=== PATIENT | female | born 1970 | race African-American/Black ===

== ENCOUNTER 2016-12-03 18:22 | Emergency (ER) | payer OTHER ==
[~2016-12-03] VITALS: Ht 167.6 cm; Wt 80.0 kg
[2016-12-03] MEDS ORDERED: KETOROLAC TROMETHAMINE 60 MG/2 ML VIAL IM ONE (21:45)
[2016-12-03 22:18] LABS: BASOPHILS % (AUTO) 0.4 % (0.0-2.0); EOSINOPHILS % (AUTO) 7.1 % (1.0-6.0); HEMATOCRIT 38.4 % (36-46); HEMOGLOBIN 12.2 g/dL (12.0-16.0); LYMPHOCYTES # (AUTO) 3.2 K/uL (1.0-4.8); LYMPHOCYTES % (AUTO) 32.4 % (22.0-44.0); MEAN CORPUSCULAR HEMOGLOBIN 25.8 pg (26.0-34.0); MEAN CORPUSCULAR HGB CONC 31.9 G/dL (31.0-37.0); MEAN CORPUSCULAR VOLUME 81 fL (80-100); MONOCYTES # (AUTO) 0.6 K/uL (0.1-1.0); MONOCYTES % (AUTO) 5.9 % (2.0-9.0); NEUTROPHILS # (AUTO) 5.4 K/uL (1.8-7.7); NEUTROPHILS % (AUTO) 54.2 % (40.0-70.0); PLATELET COUNT (AUTO) 337 K/uL (150-450); RED BLOOD CELL COUNT(AUTO) 4.75 MIL/uL (4.00-5.20); RED CELL DISTRIBUTION WIDTH 15.1 % (11.5-14.5); WHITE BLOOD COUNT (AUTO) 9.9 K/uL (4.5-11.0)
[2016-12-03 22:25] LABS: ANION GAP 12 mmol/L (8-16); CALCIUM, TOTAL 8.3 mg/dL (8.8-10.5); CARBON DIOXIDE 22 mmol/L (22-29); CHLORIDE 104 mmol/L (98-107); CREATININE 0.64 mg/dL (0.60-1.30); GLOMERULAR FILTR. RATE CALC > 60 mL/min (>60); POTASSIUM 3.8 mmol/L (3.5-5.1); SODIUM SERUM 138 mmol/L (136-145); UREA NITROGEN, BLOOD 7 mg/dL (7-18)
[2016-12-03 22:30] LABS: ALANINE AMINOTRANSFERASE 14 U/L (12-78); ALBUMIN 3.3 g/dL (3.4-5.0); ASPARTATE AMINOTRANSFERASE 15 U/L (15-37); BILIRUBIN,TOTAL 0.2 mg/dL (0.1-1.0); TOTAL PROTEIN, SERUM 7.4 g/dL (6.4-8.2)
[2016-12-03 22:58] VITALS: BP 118/73
== END 2016-12-03 23:00 | disposition home or self-care (01) ==
LOC: EMS 18:23
DX: J02.8 Acute pharyngitis due to other specified organisms (principal); B97.89 Other viral agents as the cause of diseases classified elsewhere; R10.31 Right lower quadrant pain
CPT/HCPCS: 74176; 80053; 81025; 85025; 96372; 99285; J1885

== ENCOUNTER 2017-01-21 21:28 | Emergency (ER) | payer OTHER ==
[~2017-01-21] VITALS: Ht 167.6 cm; Wt 82.0 kg
[2017-01-21 23:28] VITALS: BP 127/66
== END 2017-01-21 23:37 | disposition home or self-care (01) ==
LOC: EMS 21:30
DX: J02.9 Acute pharyngitis, unspecified (principal)
CPT/HCPCS: 99282; 99283

== ENCOUNTER 2018-06-04 01:24 | Emergency (ER) | payer OTHER ==
[~2018-06-04] VITALS: Ht 167.6 cm; Wt 84.1 kg
[2018-06-04 02:30] VITALS: BP 118/61
[2018-06-04] MEDS ORDERED: PredniSONE 20 MG TABLET PO ONE (02:45)
== END 2018-06-04 02:47 | disposition home or self-care (01) ==
LOC: EMS 01:25
DX: L50.0 Allergic urticaria (principal); H61.21 Impacted cerumen, right ear
CPT/HCPCS: 99283; J7512

== ENCOUNTER 2018-11-10 20:41 | Emergency (ER) | payer OTHER ==
[~2018-11-10] VITALS: Ht 167.6 cm; Wt 81.8 kg
[2018-11-11] MEDS ORDERED: ALBUTEROL SULFATE HFA 90 MCG/PUFF 8 GM INHALER IH ONE (02:00)
[2018-11-11] MEDS ORDERED: AZITHROMYCIN 250 MG TABLET PO ONE (02:00)
[2018-11-11 02:29] VITALS: BP 111/70
== END 2018-11-11 02:33 | disposition home or self-care (01) ==
LOC: EMS 20:42
DX: J18.9 Pneumonia, unspecified organism (principal)
CPT/HCPCS: J3535

== ENCOUNTER 2019-01-17 16:19 | Emergency (ER) | payer OTHER ==
[~2019-01-17] VITALS: Ht 162.6 cm; Wt 81.8 kg
[2019-01-17 17:46] VITALS: BP 104/68
== END 2019-01-17 19:22 | disposition home or self-care (01) ==
LOC: EMS 16:20
DX: M25.571 Pain in right ankle and joints of right foot (principal); M79.671 Pain in right foot

== ENCOUNTER 2019-05-08 16:45 | Emergency (ER) | payer OTHER ==
[~2019-05-08] VITALS: Ht 167.6 cm; Wt 86.4 kg
[2019-05-08] MEDS ORDERED: PredniSONE 20 MG TABLET PO ONE (18:00)
[2019-05-08] MEDS ORDERED: ALBUTEROL SULFATE HFA 90 MCG/PUFF 8 GM INHALER IH ONE (18:00)
[2019-05-08] MEDS ORDERED: DiphenhydrAMINE HCL 50 MG CAPSULE PO ONE (18:00)
[2019-05-08 19:37] VITALS: BP 102/65
== END 2019-05-08 19:32 | disposition home or self-care (01) ==
LOC: EMS 16:45
DX: T78.40XA Allergy, unspecified, initial encounter (principal); J18.9 Pneumonia, unspecified organism; Y92.89 Other specified places as the place of occurrence of the external cause
CPT/HCPCS: 71046; 94640; 99283; J7512; J3535

== ENCOUNTER 2020-04-03 21:58 | Emergency (ER) | payer OTHER ==
[~2020-04-03] VITALS: Ht 167.6 cm; Wt 81.8 kg
[2020-04-03 23:25] LABS: APPEARANCE,URINE CLEAR (CLEAR)
[2020-04-03 23:26] LABS: BILIRUBIN,URINE NEGATIVE (NEGATIVE); GLUCOSE, URINE (UA) NEGATIVE (NEGATIVE); KETONES,URINE NEGATIVE (NEGATIVE); LEUKOCYTE ESTERASE ,URINE SMALL (NEGATIVE); NITRATE,URINE NEGATIVE (NEGATIVE); OCCULT BLOOD,URINE NEGATIVE (NEGATIVE); PROTEIN,URINE NEGATIVE (NEGATIVE); UROBILINOGEN,URINE 0.2 mg/dL (<=1.0)
[2020-04-03 23:44] LABS: BACTERIA,URINE Rare /HPF (None Seen); RBC,URINE None Seen /HPF (0-2); SQUAMOUS EPITHELIAL CELL,UR Few /LPF (None Seen); WBC,URINE 0-2 /HPF (0-5)
[2020-04-04 00:20] VITALS: BP 119/65
[2020-04-04] MEDS ORDERED: IBUPROFEN 400 MG TABLET PO ONE (00:45)
[2020-04-04] MEDS ORDERED: LIDOCAINE 5% TRANSDERMAL PATCH TD ONE (00:45)
== END 2020-04-04 00:59 | disposition home or self-care (01) ==
LOC: EMS 21:58
DX: M54.6 Pain in thoracic spine (principal)

== ENCOUNTER 2023-08-09 17:44 | Emergency (ER) | payer MEDICAID, OTHER ==
[~2023-08-09] VITALS: Ht 167.6 cm; Wt 84.1 kg
[2023-08-09 17:52] VITALS: TEMP 97.9
[2023-08-09] MEDS ORDERED: DIPH50CA37 PO (19:38)
[2023-08-09] MEDS ORDERED: NAPH15DR75 OU (19:38)
[2023-08-09] MEDS ORDERED: HYDR30CR44 TP (19:38)
[2023-08-09] MEDS ORDERED: DiphenhydrAMINE HCL 25 MG CAPSULE PO ONE (19:45)
[2023-08-09] MEDS ORDERED: PredniSONE 20 MG TABLET PO ONE (19:45)
[2023-08-09] MEDS ORDERED: ACETAMINOPHEN 500 MG TABLET PO ONE (19:45)
[2023-08-09 20:02] VITALS: BP 122/68; PULSE 72; RESP 18
== END 2023-08-09 20:04 | disposition home or self-care (01) ==
LOC: EMS 17:45
DX: H10.13 Acute atopic conjunctivitis, bilateral (principal); Z98.890 Other specified postprocedural states
CPT/HCPCS: 99284; J7512

== ENCOUNTER 2023-09-12 03:21 | Emergency (ER) | payer MEDICAID, OTHER ==
[~2023-09-12] VITALS: Ht 167.6 cm; Wt 77.0 kg
[~2023-09-12 03:21] MED LIST: DIPH50CA37 PO; HYDR30CR44 TP; NAPH15DR75 OU
[2023-09-12 03:44] VITALS: TEMP 98
[2023-09-12] MEDS ORDERED: TraMADol HCL 50 MG TABLET PO ONE (04:30)
[2023-09-12] MEDS ORDERED: TRAM-559 PO (05:44)
[2023-09-12 06:00] VITALS: BP 124/77; PULSE 80; RESP 18
== END 2023-09-12 07:06 | disposition home or self-care (01) ==
LOC: EMS 03:25
DX: M65.4 Radial styloid tenosynovitis [de Quervain] (principal); Z98.890 Other specified postprocedural states
CPT/HCPCS: 99283

== ENCOUNTER 2024-01-28 00:39 | Emergency (ER) | payer OTHER ==
[~2024-01-28] VITALS: Ht 162.6 cm; Wt 81.8 kg
[~2024-01-28 00:39] MED LIST changes: +TRAM50TA5 PO
[2024-01-28 01:24] LABS: BASOPHILS % (AUTO) 0.6 % (0.0-2.0); EOSINOPHILS % (AUTO) 7.6 % (1.0-6.0); HEMATOCRIT 34.6 % (36-46); HEMOGLOBIN 10.9 g/dL (12.0-16.0); LYMPHOCYTES # (AUTO) 3.5 K/uL (1.0-4.8); LYMPHOCYTES % (AUTO) 33.9 % (22.0-44.0); MEAN CORPUSCULAR HGB CONC 31.6 G/dL (31.0-37.0); MEAN CORPUSCULAR VOLUME 73 fL (80-100); MONOCYTES # (AUTO) 0.7 K/uL (0.1-1.0); NEUTROPHILS # (AUTO) 5.3 K/uL (1.8-7.7); NEUTROPHILS % (AUTO) 50.9 % (40.0-70.0); PLATELET COUNT (AUTO) 396 K/uL (150-450); RED BLOOD CELL COUNT(AUTO) 4.76 MIL/uL (4.00-5.20); RED CELL DISTRIBUTION WIDTH 19.1 % (11.5-14.5); WHITE BLOOD COUNT (AUTO) 10.4 K/uL (4.5-11.0)
[2024-01-28 01:30] VITALS: BP 120/70; PULSE 77; RESP 18; TEMP 97.8
[2024-01-28 01:35] LABS: ANION GAP 9 mmol/L (8-16); CALCIUM, TOTAL 8.5 mg/dL (8.8-10.5); CARBON DIOXIDE 27 mmol/L (22-29); CHLORIDE 106 mmol/L (98-107); CREATININE 0.66 mg/dL (0.60-1.30); GLOMERULAR FILTR. RATE CALC > 60 mL/min (>60); GLUCOSE,RANDOM 116 mg/dL (70-110); SODIUM SERUM 142 mmol/L (136-145); UREA NITROGEN, BLOOD 10 mg/dL (7-18)
[2024-01-28 01:41] LABS: ALANINE AMINOTRANSFERASE 30 U/L (12-78); ALBUMIN 3.3 g/dL (3.4-5.0); ALKALINE PHOSPHATASE 98 U/L (46-116); ASPARTATE AMINOTRANSFERASE 27 U/L (15-37); BILIRUBIN,TOTAL 0.1 mg/dL (0.1-1.0); TOTAL PROTEIN, SERUM 7.4 g/dL (6.4-8.2)
[2024-01-28 01:52] LABS: TROPONIN I-HIGH SENSITIVITY Less Than 4 ng/L (<51)
[2024-01-28 02:11] LABS: COVID AG,FIA SOURCE NASAL SWAB
[2024-01-28] MEDS: ACETAMINOPHEN 500 MG TABLET PO ONE (02:33)
[2024-01-28] MEDS: ALBUTEROL SULFATE HFA 90 MCG/PUFF 8 GM INHALER IH ONE (02:33)
[2024-01-28 02:47] LABS: SARS-COV2 (COVID) ANTIGEN,FIA Negative (Negative)
[2024-01-28 03:14] LABS: INFLUENZA TYPE A NEGATIVE FOR TYPE A (NEGATIVE); INFLUENZA TYPE B NEGATIVE FOR TYPE B (NEGATIVE)
[2024-01-28] MEDS ORDERED: AZIT-103 PO (03:16)
[2024-01-28] MEDS: AZITHROMYCIN 500 MG TABLET PO ONE (03:31)
== END 2024-01-28 03:39 | disposition home or self-care (01) ==
LOC: EMS 00:41
DX: J40 Bronchitis, not specified as acute or chronic (principal); Z98.890 Other specified postprocedural states; Z20.822 Contact with and (suspected) exposure to COVID-19
CPT/HCPCS: 99285; 71045; 87426; 80053; 84484; 84703; 85025; 87804; 36415; 94640; 93005; Q9967; J3535

== ENCOUNTER 2024-12-17 19:27 | Emergency (ER) | payer OTHER ==
[~2024-12-17] VITALS: Ht 167.6 cm; Wt 81.8 kg
[~2024-12-17 19:27] MED LIST changes: +AZIT-164 PO
[2024-12-17 19:31] VITALS: BP 118/51; PULSE 82; RESP 16; TEMP 97.8; O2SAT 100
[2024-12-17 20:18] LABS: BASOPHILS % (AUTO) 0.8 % (0.0-2.0); HEMATOCRIT 33.8 % (36-46); HEMOGLOBIN 10.4 g/dL (12.0-16.0); LYMPHOCYTES # (AUTO) 2.7 K/uL (1.0-4.8); LYMPHOCYTES % (AUTO) 32.3 % (22.0-44.0); MEAN CORPUSCULAR HEMOGLOBIN 23.4 pg (26.0-34.0); MEAN CORPUSCULAR HGB CONC 30.8 G/dL (31.0-37.0); MEAN CORPUSCULAR VOLUME 76 fL (80-100); MONOCYTES # (AUTO) 0.6 K/uL (0.1-1.0); MONOCYTES % (AUTO) 6.7 % (2.0-9.0); NEUTROPHILS # (AUTO) 4.7 K/uL (1.8-7.7); NEUTROPHILS % (AUTO) 57.2 % (40.0-70.0); PLATELET COUNT (AUTO) 526 K/uL (150-450); RED BLOOD CELL COUNT(AUTO) 4.45 MIL/uL (4.00-5.20); RED CELL DISTRIBUTION WIDTH 22.7 % (11.5-14.5); WHITE BLOOD COUNT (AUTO) 8.2 K/uL (4.5-11.0)
[2024-12-17 20:27] LABS: ANION GAP 8 mmol/L (8-16); CALCIUM, TOTAL 8.5 mg/dL (8.8-10.5); CARBON DIOXIDE 27 mmol/L (22-29); CHLORIDE 103 mmol/L (98-107); CREATININE 0.87 mg/dL (0.60-1.30); GLOMERULAR FILTR. RATE CALC > 60 mL/min (>60); GLUCOSE,RANDOM 107 mg/dL (70-110); POTASSIUM 3.6 mmol/L (3.5-5.1); SODIUM SERUM 138 mmol/L (136-145); UREA NITROGEN, BLOOD 9 mg/dL (7-18)
[2024-12-17 20:29] LABS: APPEARANCE,URINE CLEAR (CLEAR); BILIRUBIN,URINE NEGATIVE (NEGATIVE); COLOR,URINE YELLOW (YELLOW); GLUCOSE, URINE (UA) NEGATIVE (NEGATIVE); KETONES,URINE TRACE mg/dL (NEGATIVE); LEUKOCYTE ESTERASE ,URINE SMALL (NEGATIVE); NITRATE,URINE NEGATIVE (NEGATIVE); OCCULT BLOOD,URINE NEGATIVE (NEGATIVE); PH,URINE 6.5 (5.0-8.0); PROTEIN,URINE 30-70 mg/dL (NEGATIVE); SPECIFIC GRAVITIY, URINE 1.029 (1.003-1.030); UROBILINOGEN,URINE <=1.0 mg/dL (<=1.0)
[2024-12-17 20:55] LABS: BACTERIA,URINE Few /HPF (None Seen); RBC,URINE 0-2 /HPF (0-2); SQUAMOUS EPITHELIAL CELL,UR Moderate /LPF (None Seen)
[2024-12-17 20:59] LABS: RBC MORPHOLOGY COMMENT ABNORMAL RBC MORPH
[2024-12-17] MEDS: CEPHALEXIN MONOHYDRATE 500 MG CAPSULE PO ONE (23:17)
[2024-12-18] MEDS ORDERED: CEPH-558 PO (00:03)
[2024-12-18] MEDS ORDERED: PHEN-846 PO (00:03)
== END 2024-12-18 00:30 | disposition home or self-care (01) ==
LOC: EMS 19:28
DX: N39.0 Urinary tract infection, site not specified (principal)
CPT/HCPCS: 80048; 81001; 85025; 99283